=== PATIENT | female | born 1945 | race Caucasian/White ===

== ENCOUNTER 2017-01-25 18:42 | Emergency (ER) | payer MEDICARE ==
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
[2017-01-25 21:27] LABS: APPEARANCE,URINE CLEAR; BILIRUBIN,URINE NEGATIVE (NEGATIVE); GLUCOSE, URINE NEGATIVE (NEGATIVE); KETONES,URINE NEGATIVE (NEGATIVE); LEUKOCYTE ESTERASE,URINE SMALL (NEGATIVE); NITRITE,URINE NEGATIVE (NEGATIVE); PROTEIN,URINE NEGATIVE (NEGATIVE); URINE SPECIFIC GRAVITY 1.003; UROBILINOGEN,URINE NEGATIVE mg/dL (<2.0)
[2017-01-26 03:17] VITALS: BP 139/72
== END 2017-01-26 03:00 | disposition home or self-care (01) ==
LOC: ER 18:42
DX: R41.82 Altered mental status, unspecified (principal); F03.90 Unspecified dementia, unspecified severity, without behavioral disturbance, psychotic disturbance, mood disturbance, and anxiety
CPT/HCPCS: 81001; 99285

== ENCOUNTER 2017-03-04 14:59 | Emergency (ER) | payer MEDICARE, MEDICAID ==
[2017-03-04 16:15] LABS: ABSOLUTE EOSINOPHILS # (AUTO) 0.1 10^3/uL (0.0-0.6); ABSOLUTE LYMPHOCYTES (AUTO) 1.9 10^3/uL (0.5-4.7); ABSOLUTE MONOCYTES (AUTO) 1.2 10^3/uL (0.1-1.4); ABSOLUTE NEUT (AUTO) 11.3 10^3/uL (1.7-8.2); BASOPHILS % (AUTO) 0.3 % (0-2); EOSINOPHILS % (AUTO) 0.5 % (0-6); HEMOGLOBIN 11.8 g/dL (12.0-15.5); HGB HCT DIFFERENCE 0.4; MEAN CORPUSCULAR HEMOGLOBIN 31.4 pg (27.0-33.4); MEAN CORPUSCULAR HGB CONC 33.6 g/dL (32.0-36.0); MEAN CORPUSCULAR VOLUME 93 fl (80-97); MONOCYTES % (AUTO) 8.5 % (3-13); RED BLOOD COUNT 3.75 10^6/uL (3.72-5.28); SEGMENTED NEUTROPHILS % (AUTO) 77.7 % (42-78); WHITE BLOOD COUNT 14.6 10^3/uL (4.0-10.5)
--- NOTE | 2017-03-04 16:16 | ER Document Report ---
ED GI/ - General Mode of Arrival: Ambulatory Information source: Patient TRAVEL OUTSIDE OF THE [place] IN LAST 30 DAYS: No - HPI Patient complains to provider of: Other - see narrative Timing/Duration: Persistent Quality of pain: Achy Associated symptoms: Nausea <HELLEN RAMÍREZ - Last Filed: 03/04/17 21:57> <KYLEIGH CORMIER - Last Filed: 03/04/17 22:20> - General Chief Complaint: hematuria Stated Complaint: URINARY SYMPTOMS Time Seen by Provider: 03/04/17 15:27 Notes: Patient is a 72-year-old female who presents to the emergency department today with complaints of "I think I have a UTI". Patient states she has had mild nausea but denies any vomiting. Patient states that she has an "upset stomach". Patient is a poor historian so history is limited. (HELLEN RAMÍREZ) - Related Data Allergies/Adverse Reactions: No Known Allergies Allergy (Unverified 03/04/17 15:27) Past Medical History - General Information source: Patient - Social History Smoking Status: Unknown if Ever Smoked Cigarette use (# per day): No Frequency of alcohol use: None Drug Abuse: None Lives with: Family Family History: Reviewed & Not Pertinent Patient has suicidal ideation: No Patient has homicidal ideation: No - Past Medical History Cardiac Medical History: Reports: Hx Hypercholesterolemia, Hx Hypertension Psychiatric Medical History: Reports: Hx Dementia Surgical Hx: Negative <HELLEN RAMÍREZ - Last Filed: 03/04/17 21:57> Review of Systems - Review of Systems Constitutional: No symptoms reported EENT: No symptoms reported Cardiovascular: No symptoms reported Respiratory: No symptoms reported Gastrointestinal: See HPI, Nausea. denies: Vomiting Genitourinary: See HPI, Other - "i think i have a UTI" Female Genitourinary: No symptoms reported Musculoskeletal: No symptoms reported Skin: No symptoms reported Hematologic/Lymphatic: No symptoms reported Neurological/Psychological: No symptoms reported -: Yes All other systems reviewed and negative <HELLEN RAMÍREZ - Last Filed: 03/04/17 21:57> Physical Exam <HELLEN RAMÍREZ - Last Filed: 03/04/17 21:57> <KYLEIGH CORMIER - Last Filed: 03/04/17 22:20> - Vital signs Vitals: Temp Pulse Resp BP Pulse Ox 98.9 F 77 16 136/70 H 97 03/04/17 15:17 03/04/17 15:17 03/04/17 15:17 03/04/17 15:17 03/04/17 15:17 - Notes Notes: Physical Exam: General: Alert, appears at baseline. HEENT: Normocephalic. Atraumatic. PERRL. Extraocular movements intact. Oropharynx clear. Neck: Supple. Non-tender. Respiratory: No respiratory distress. Clear and equal breath sounds bilaterally. Cardiovascular: Regular rate and rhythm. Abdominal: Suprapubic abdominal tenderness with palpation. No distension. Normal Bowel Sounds. Back: Non-tender. No CVA tenderness with percussion. No deformity or step off. Extremities: Moves all four extremities. Upper extremities: Normal inspection. Normal ROM. Lower extremities: Normal inspection. No edema. Normal ROM. Neurological: Baseline cognition. Baseline speech. Psychological: Normal affect. Normal Mood. Skin: Warm. Dry. Normal color. (HELLEN RAMÍREZ) Course - Laboratory Result Diagrams: 03/04/17 16:00 03/04/17 16:00 <HELLEN RAMÍREZ - Last Filed: 03/04/17 21:57> - Laboratory Result Diagrams: 03/04/17 16:00 03/04/17 16:00 <KYLEIGH CORMIER - Last Filed: 03/04/17 22:20> - Re-evaluation Re-evalutation: 03/04/17 Patient presents with dysuria and urinalysis consistent with urinary tract infection. She will be given a dose of Rocephin here in the emergency department, and discharged home with Keflex. Patient does not have any vomiting. No flank pain. Vitals are stable. Patient is afebrile. Understands. Return if any worsening or concerning symptoms. (KYLEIGH CORMIER) - Vital Signs Vital signs: Temp Pulse Resp BP Pulse Ox 98.9 F 79 18 158/75 H 98 03/04/17 18:46 03/04/17 19:07 03/04/17 19:07 03/04/17 19:07 03/04/17 19:07 - Laboratory Laboratory results interpreted by me: 03/04/17 03/04/17 03/04/17 16:00 16:00 17:12 WBC 14.6 H Hgb 11.8 L Hct 35.0 L Absolute Neutrophils 11.3 H Chloride 111 H BUN 35 H Creatinine 2.15 H Est GFR ( Amer) 27 L Est GFR (Non-Af Amer) 23 L Urine Protein 30 H Urine Blood LARGE H Ur Leukocyte Esterase SMALL H Discharge <HELLEN RAMÍREZ - Last Filed: 03/04/17 21:57> <KYLEIGH CORMIER - Last Filed: 03/04/17 22:20> - Discharge Clinical Impression: UTI (urinary tract infection) Qualifiers: Urinary tract infection type: site unspecified Hematuria presence: with hematuria Qualified Code(s): N39.0 - Urinary tract infection, site not specified ; R31.9 - Hematuria, unspecified Condition: Stable Disposition: HOME, SELF-CARE Instructions: Urinary Tract Infection ([facility]) Prescriptions: Cephalexin Monohydrate [Keflex 500 mg Capsule] 500 mg PO TID 10 Days capsule Scribe Attestation: 03/04/17 22:19 I personally performed the services described in the documentation, reviewed and edited the documentation which was dictated to the scribe in my presence, and it accurately records my words and actions. (KYLEIGH OCRMIER) Scribe Documentation - Scribe Written by Angela:: Angela Preciado, 03/04/2017 1647 acting as scribe for :: Anna <HELLEN RAMÍREZ - Last Filed: 03/04/17 21:57>
[2017-03-04 16:31] LABS: ALANINE AMINOTRANSFERASE 35 U/L (9-52); ALBUMIN 3.9 g/dL (3.5-5.0); ALKALINE PHOSPHATASE 104 U/L (38-126); ANION GAP 10 (5-19); ASPARTATE AMINO TRANSFERASE 25 U/L (14-36); BILIRUBIN,DIRECT 0.3 mg/dL (0.0-0.4); BILIRUBIN,TOTAL 0.3 mg/dL (0.2-1.3); BLOOD UREA NITROGEN 35 mg/dL (7-20); CALCIUM 10.1 mg/dL (8.4-10.2); CARBON DIOXIDE 22 mmol/L (22-30); CHLORIDE 111 mmol/L (98-107); CREATININE RESULT 2.15 mg/dL (0.52-1.25); GLUCOSE 92 mg/dL (75-110); POTASSIUM 4.5 mmol/L (3.6-5.0); SODIUM 143.1 mmol/L (137-145); TOTAL PROTEIN 6.5 g/dL (6.3-8.2)
[2017-03-04 17:32] LABS: APPEARANCE,URINE CLEAR; BILIRUBIN,URINE NEGATIVE (NEGATIVE); GLUCOSE, URINE NEGATIVE (NEGATIVE); KETONES,URINE NEGATIVE (NEGATIVE); LEUKOCYTE ESTERASE,URINE SMALL (NEGATIVE); NITRITE,URINE NEGATIVE (NEGATIVE); PROTEIN,URINE 30 mg/dL (NEGATIVE); URINE SPECIFIC GRAVITY 1.004; UROBILINOGEN,URINE NEGATIVE mg/dL (<2.0)
[2017-03-04] MEDS ORDERED: LIDOCAINE 1% INJ-PF (10 MG/ML) 30 ML SDV INJ ONE (18:19)
[2017-03-04] MEDS ORDERED: CEFTRIAXONE INJ 1000 MG VIAL IM ONE (18:19)
[2017-03-04 19:09] VITALS: BP 158/75
== END 2017-03-04 19:07 | disposition home or self-care (01) ==
LOC: ER 14:59
DX: N39.0 Urinary tract infection, site not specified (principal); R31.9 Hematuria, unspecified; R39.198 Other difficulties with micturition; R11.0 Nausea
CPT/HCPCS: 99283; 96372; 36415; 85025; 80053; 81001; J3490; J0696

== ENCOUNTER 2017-03-28 18:35 | Emergency (ER) | payer MEDICARE, MEDICAID ==
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
[2017-03-28 20:38] LABS: ABSOLUTE EOSINOPHILS # (AUTO) 0.1 10^3/uL (0.0-0.6); ABSOLUTE LYMPHOCYTES (AUTO) 1.9 10^3/uL (0.5-4.7); ABSOLUTE MONOCYTES (AUTO) 0.9 10^3/uL (0.1-1.4); ABSOLUTE NEUT (AUTO) 5.3 10^3/uL (1.7-8.2); BASOPHILS % (AUTO) 0.5 % (0-2); HEMATOCRIT 31.9 % (36.0-47.0); HEMOGLOBIN 10.9 g/dL (12.0-15.5); HGB HCT DIFFERENCE 0.8; MEAN CORPUSCULAR HEMOGLOBIN 31.3 pg (27.0-33.4); MEAN CORPUSCULAR HGB CONC 34.1 g/dL (32.0-36.0); MEAN CORPUSCULAR VOLUME 92 fl (80-97); MONOCYTES % (AUTO) 11.5 % (3-13); RED BLOOD COUNT 3.48 10^6/uL (3.72-5.28); RED CELL DISTRIBUTION WIDTH 12.6 % (11.5-14.0); WHITE BLOOD COUNT 8.2 10^3/uL (4.0-10.5)
[2017-03-28 20:58] LABS: ALANINE AMINOTRANSFERASE 32 U/L (9-52); ALKALINE PHOSPHATASE 92 U/L (38-126); ANION GAP 11 (5-19); ASPARTATE AMINO TRANSFERASE 33 U/L (14-36); BILIRUBIN,DIRECT 0.4 mg/dL (0.0-0.4); BILIRUBIN,TOTAL 0.4 mg/dL (0.2-1.3); BLOOD UREA NITROGEN 30 mg/dL (7-20); CALCIUM 10.5 mg/dL (8.4-10.2); CARBON DIOXIDE 23 mmol/L (22-30); CHLORIDE 112 mmol/L (98-107); CREATINE KINASE 97 U/L (30-135); CREATININE RESULT 2.25 mg/dL (0.52-1.25); GLUCOSE 97 mg/dL (75-110); POTASSIUM 4.7 mmol/L (3.6-5.0); TOTAL PROTEIN 6.6 g/dL (6.3-8.2)
[2017-03-28] MEDS ORDERED: NORMAL SALINE 1000 ML 1,000 ML IV ONE (21:05)
[2017-03-28 21:28] LABS: APPEARANCE,URINE CLEAR; BILIRUBIN,URINE NEGATIVE (NEGATIVE); GLUCOSE, URINE NEGATIVE (NEGATIVE); KETONES,URINE NEGATIVE (NEGATIVE); LEUKOCYTE ESTERASE,URINE SMALL (NEGATIVE); NITRITE,URINE NEGATIVE (NEGATIVE); PROTEIN,URINE NEGATIVE (NEGATIVE); URINE SPECIFIC GRAVITY 1.003; UROBILINOGEN,URINE NEGATIVE mg/dL (<2.0)
--- NOTE | 2017-03-28 21:40 | RADIOLOGY REPORT (SQ) ---
EXAM DESCRIPTION: CT LTD RENAL STONE PROTOCOL ON COMPLETED DATE/TIME: 03/28/2017 9:27 pm REASON FOR STUDY: LLQ tenderness COMPARISON: None. TECHNIQUE: CT scan of the abdomen and pelvis performed without intravenous or oral contrast. Images reviewed with lung, soft tissue, and bone windows. Reconstructed coronal and sagittal MPR images revi ewed. All images stored on PACS. All CT scanners at this facility use dose modulation, iterative reconstruction, and/or weight based d osing when appropriate to reduce radiation dose to as low as reasonably achievable (ALARA). [facility]: Dose Right [facility]: CareDose [facility]: Dose Right [facility]: Teradose 4D [facility]: [employer] RADIATION DOSE: Up-to-date CT equipment and radiation dose reduction techniques were employed. CTDIv ol: 5.7 mGy. DLP: 268 mGy-cm.mGy. LIMITATIONS: None. FINDINGS: LOWER CHEST: No significant findings. No nodules or infiltrates. NON-CONTRASTED LIVER, SPLEEN, ADRENALS: Evaluation limited by lack of IV contrast. No identified sign ificant masses. PANCREAS: No masses. No peripancreatic inflammatory changes. GALLBLADDER: No identified stones by CT criteria. No inflammatory changes to suggest cholecystitis. RIGHT KIDNEY AND URETER: Cyst. 1 contains dependent calcification. 1 is hemorrhagic. No significa nt calcifications. No hydronephrosis or hydroureter. LEFT KIDNEY AND URETER: Cysts contains dependent calcifications. No significant calcifications. N o hydronephrosis or hydroureter. AORTA AND RETROPERITONEUM: No aneurysm. No retroperitoneal masses or adenopathy. BOWEL AND PERITONEAL CAVITY: Diverticulosis. No diverticulitis. APPENDIX: Normal. PELVIS, BLADDER, AND ABDOMINAL WALL:No abnormal masses. No free fluid. Bladder normal. BONES: Degenerative changes. Left hip replacement. OTHER: No other significant finding. IMPRESSION: Diverticulosis of the colon without diverticulitis. Renal cysts both simple and hemorrhagic. Renal cysts COMMENT: Quality ID # [id number]: Final reports with documentation of one or more dose reduction techniques (e.g., Automated exposure control, adjustment of the mA and/or kV according to patient size, use of iterative reconstruction technique) TECHNICAL DOCUMENTATION: JOB ID: [id number] [employer]- All Rights Reserved
[2017-03-29 00:21] VITALS: BP 122/55
== END 2017-03-29 00:45 | disposition home or self-care (01) ==
LOC: ER 18:35
DX: R19.7 Diarrhea, unspecified (principal); K57.90 Diverticulosis of intestine, part unspecified, without perforation or abscess without bleeding; R10.32 Left lower quadrant pain; I10 Essential (primary) hypertension
CPT/HCPCS: 36415; 76380; 80053; 81001; 82550; 83690; 85025; 99285